=== PATIENT | male | born 1965 | race Caucasian/White ===

== ENCOUNTER → 2019-03-23 | Outpatient (CLI) | payer BC ==
[2019-03-23 20:27] LABS: BASO % 0.5 % (0.0-1.0); EOS # 0.2 10^3/uL (0.0-0.50); EOS % 2.7 % (0.0-3.0); HEMATOCRIT 43.4 % (42.0-52.0); HEMOGLOBIN 14.1 g/dl (13.5-17.5); LYMPH # 3.3 10^3/uL (1.5-4.5); LYMPH % 40.8 % (24.0-44.0); MEAN CORPUSCULAR HEMOGLOBIN 30.3 pg (27.0-33.0); MEAN CORPUSCULAR HGB CONC 32.5 g/dl (32.0-36.5); MEAN CORPUSCULAR VOLUME 93.1 fl (80.0-96.0); MONO # 0.8 10^3/uL (0.0-0.8); MONO % 9.3 % (0.0-5.0); NEUTROPHILS # 3.8 10^3/uL (1.8-7.7); NEUTROPHILS % 46.6 % (36.0-66.0); PLATELET COUNT, AUTOMATED 390 10^3/uL (150-450); RED BLOOD COUNT 4.66 10^6/uL (4.30-6.10); WHITE BLOOD COUNT 8.1 10^3/uL (4.0-10.0)
[2019-03-23 20:33] LABS: ALBUMIN 3.8 GM/DL (3.2-5.2); ALT/SGPT 28 U/L (12-78); BILIRUBIN,TOTAL 0.2 MG/DL (0.2-1.0); BLOOD UREA NITROGEN 13 MG/DL (7-18); CALCIUM LEVEL 8.6 MG/DL (8.5-10.1); CARBON DIOXIDE LEVEL 28 MEQ/L (21-32); CHLORIDE LEVEL 108 MEQ/L (98-107); CREATININE FOR GFR 0.84 MG/DL (0.70-1.30); GLOMERULAR FILTRATION RATE > 60.0 (>56); GLUCOSE, FASTING 86 MG/DL (70-100); POTASSIUM SERUM 4.3 MEQ/L (3.5-5.1); SODIUM LEVEL 141 MEQ/L (136-145)
== END ==
LOC: M WUC 10:30
DX: R31.9 Hematuria, unspecified (principal)

== ENCOUNTER → 2019-03-27 | Outpatient (REF) | payer BC ==
[2019-03-27 14:52] LABS: APPEARANCE, URINE CLEAR (CLEAR); BACTERIA, URINE AUTO NEGATIVE (NEGATIVE); BILIRUBIN, URINE AUTO NEGATIVE (NEGATIVE); BLOOD, URINE BLOOD 1+ (NEGATIVE); COLOR, URINE YELLOW (YELLOW); GLUCOSE, URINE (UA) AUTO NEGATIVE (NEGATIVE); KETONE, URINE AUTO NEGATIVE (NEGATIVE); LEUKOCYTE ESTERASE, URINE AUTO NEGATIVE (NEGATIVE); NITRITE, URINE AUTO NEGATIVE (NEGATIVE); PROTEIN, URINE AUTO NEGATIVE (NEGATIVE); RBC, URINE AUTO 5 /HPF (0-3); SPECIFIC GRAVITY URINE AUTO 1.012 (1.002-1.035); SQUAMOUS EPITHELIAL CELL UR AU 0 /HPF (0-6); UROBILINOGEN, URINE AUTO 0.2 mg/dL (0.0-2.0); WBC, URINE AUTO 0 /HPF (0-3)
== END ==
LOC: M SMT 13:35
PROVIDERS: ATTEND Nurse Practitioner Family
DX: R31.9 Hematuria, unspecified (principal)

== ENCOUNTER → 2019-04-01 | Outpatient (CLI) | payer BC ==
[~2019-04-01] MED LIST: ISOVUE-370 76% 100ML VIAL (Q9967) As Ordered ONE
--- NOTE | 2019-04-01 16:44 | REP ---
Clinical: Hematuria. Technique: Axial precontrast, contrast enhanced, and delayed images of the abdomen and pelvis using 100 ml Isovue 370 intravenous contrast material with coronal and sagittal re-formations. Findings: Left kidney demonstrates 2 mm nonobstructing calculus and 3.5 x 1.4 x 1.4 cm peripelvic cyst. Right kidney and bilateral ureters are normal. Evaluation of the bladder demonstrates moderate mass effect due to underlying prostate gland which measures approximately 3.7 cm diameter. 2.7 cm enhancing liver lesion within the lateral segment left lobe appears isointense on delayed images. No findings are nonspecific, differential diagnosis includes focal nodular hyperplasia, adenoma, and hemangioma. Spleen, pancreas, and gallbladder appear normal. The adrenal glands demonstrate mild hyperplastic changes (left greater than right) the enteric system is without obstruction or acute inflammatory process. Normal terminal ileum and appendix identified in the right lower quadrant. Sigmoid diverticulosis noted without acute diverticulitis. No ascites. No free air. No adenopathy. Abdominal aorta without aneurysm. Musculoskeletal structures demonstrate age-related changes. Lung bases are clear. Impression: 1. 2 mm nonobstructing left renal calculus and left peripelvic cyst noted along with enlarged prostate gland having mass effect on the base of the bladder. 2. 2.7 cm enhancing liver lesion becoming isointense on delayed images. Differential diagnosis includes but is not limited to atypical hemangioma, focal nodular hyperplasia and adenoma. Correlation and follow up ultrasound may be warranted. 3. Sigmoid diverticula without acute diverticulitis. Electronically Signed by Eric Aragon MD 04/01/2019 04:35 P
== END ==
LOC: M RAD 15:43
PROVIDERS: ATTEND Nurse Practitioner Family
DX: R31.9 Hematuria, unspecified (principal)

== ENCOUNTER → 2019-10-22 | Outpatient (CLI) | payer BC ==
--- NOTE | 2019-10-22 14:14 | REP ---
Clinical: Kidney stone. Technique: Two supine views of the abdomen and pelvis. Findings: Small calcifications measuring up to approximately 5 mm overlying the right renal silhouette. Calcifications in the pelvis likely represent phleboliths. Further evaluation of the urinary tract system is limited due to technique. No evidence for bowel obstruction. No organomegaly. Skeletal structures demonstrate age-related changes. Impression: Suspected nonobstructing right intrarenal calculi up to 5 mm. Electronically Signed by Eric Aragon MD 10/22/2019 02:05 P
== END ==
LOC: M WUC 13:48
PROVIDERS: ATTEND Nurse Practitioner Family
DX: N20.0 Calculus of kidney (principal)

== ENCOUNTER → 2019-11-06 | Outpatient (CLI) | payer BC ==
--- NOTE | 2019-11-06 16:02 | REPVR ---
PROCEDURE INFORMATION: Exam: CT Abdomen And Pelvis Without Contrast Exam date and time: 11/06/2019 2:42 PM Age: 54 years old Clinical indication: Other: Stone; Additional info: Kidney stone TECHNIQUE: Imaging protocol: Computed tomography of the abdomen and pelvis without contrast. Radiation optimization: All CT scans at this facility use at least one of these dose optimization techniques: automated exposure control; mA and/or kV adjustment per patient size (includes targeted exams where dose is matched to clinical indication); or iterative reconstruction. COMPARISON: CT ABD PELVIS W/O FOL BY WIT 04/01/2019 4:02 PM FINDINGS: Heart: Heart size is normal. Liver: In the left hepatic lobe, subtle hypodense lesion, 2.6 x 2.4 x 1.9 cm, is unchanged from the contrast enhancing lesion which was described in the report of the CT on 04/01/19. Gallbladder and bile ducts: Normal. No calcified stones. No ductal dilation. Pancreas: Normal. No ductal dilation. Spleen: Normal. No splenomegaly. Adrenals: Left adrenal hyperplasia is unchanged. Kidneys and ureters: There is a stable 2 mm subcortical stone with mild focal cortical scarring at the lateral aspect of the mid to lower right kidney. Two nonobstructing 2 mm calyceal stones in the lower left kidney. Stable parapelvic cyst inferior to the left renal pelvis is 4.1 x 2.6 x 2.0 cm. The kidneys and ureters are otherwise unremarkable. Stomach and bowel: Mild colonic diverticulosis without evidence of diverticulitis. The colon is otherwise unremarkable. No acute colonic distention or inflammation. Stomach and duodenum are unremarkable. Small bowel loops are normal in caliber. Appendix: The appendix is normal in caliber without surrounding inflammation. Intraperitoneal space: No free air or free fluid in the abdomen or pelvis. Vasculature: Unremarkable. No abdominal aortic aneurysm. Lymph nodes: Unremarkable. No enlarged lymph nodes. Bladder: Urinary bladder is normal without wall thickening, mass or stone. Reproductive: The prostate appears appropriate for 54 years of age. Mild prostate enlargement. Bones/joints: Severe multifactorial spinal stenosis at L3-L4 and L4-L5. 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 Soft tissues: Unremarkable. IMPRESSION: 1. Two nonobstructing 2 mm calyceal stones in the lower left kidney. One of them was present on the last CT in March 2019. 2. In the left hepatic lobe, a hypodense lesion is 2.6 x 2.4 x 1.9 cm. Its size is unchanged from the contrast-enhancing lesion which was described in the report of the CT on 04/01/19. It is nonspecific. Stability is reassuring. 3. Severe multifactorial spinal stenosis at L3-L4 and L4-L5. 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 If symptomatic, consider MRI. 4. Stable parapelvic cyst inferior to the left renal pelvis is 4.1 x 2.6 x 2.0 cm. 5. Mild colonic diverticulosis without evidence of diverticulitis. 6. Stable left adrenal hyperplasia. Electronically signed by: Frank Evans On 11/06/2019 16:02:01 PM
== END ==
LOC: M RAD 14:33
PROVIDERS: ATTEND Nurse Practitioner Family
DX: N20.0 Calculus of kidney (principal)

== ENCOUNTER → 2019-12-30 | Outpatient (REF) | payer BC ==
[2019-12-30 11:25] LABS: BASO # 0.1 10^3/uL (0.0-0.2); BASO % 0.6 % (0.0-1.0); EOS # 0.1 10^3/uL (0.0-0.5); EOS % 1.2 % (0.0-3.0); HEMATOCRIT 45.5 % (42.0-52.0); HEMOGLOBIN 15.5 g/dl (13.5-17.5); LYMPH % 39.5 % (24.0-44.0); MEAN CORPUSCULAR HEMOGLOBIN 30.8 pg (27.0-33.0); MEAN CORPUSCULAR HGB CONC 34.1 g/dl (32.0-36.5); MEAN CORPUSCULAR VOLUME 90.5 fl (80.0-96.0); MONO # 0.9 10^3/uL (0.0-0.8); NEUTROPHILS % 49.3 % (36.0-66.0); PLATELET COUNT, AUTOMATED 435 10^3/uL (150-450); RED BLOOD COUNT 5.03 10^6/uL (4.30-6.10); WHITE BLOOD COUNT 10.1 10^3/uL (4.0-10.0)
[2019-12-30 11:51] LABS: HEMOGLOBIN A1c 5.8 %
[2019-12-30 12:05] LABS: ALBUMIN 4.1 GM/DL (3.2-5.2); ALT/SGPT 30 U/L (12-78); BILIRUBIN,TOTAL 0.4 MG/DL (0.2-1.0); BLOOD UREA NITROGEN 10 MG/DL (7-18); CALCIUM LEVEL 9.1 MG/DL (8.5-10.1); CARBON DIOXIDE LEVEL 28 MEQ/L (21-32); CHLORIDE LEVEL 106 MEQ/L (98-107); CHOLESTEROL LEVEL 189 MG/DL (<200); CREATININE FOR GFR 0.82 MG/DL (0.70-1.30); FREE T4 1.18 NG/DL (0.76-1.46); GLOMERULAR FILTRATION RATE > 60.0 (>56); GLUCOSE, FASTING 87 MG/DL (70-100); HDL CHOLESTEROL 50 MG/DL (>40); LDL CHOLESTEROL 118 MG/DL (<100); NON-HDL-C 139 MG/DL; POTASSIUM SERUM 4.3 MEQ/L (3.5-5.1); SODIUM LEVEL 139 MEQ/L (136-145); TOTAL PROTEIN 7.4 GM/DL (6.4-8.2); TRIGLYCERIDES LEVEL 105 MG/DL (<150)
== END ==
LOC: M SFHCPLAZ 08:02
PROVIDERS: ATTEND Physician Assistant Medical
DX: Z12.11 Encounter for screening for malignant neoplasm of colon (principal); Z13.220 Encounter for screening for lipoid disorders; Z68.32 Body mass index [BMI] 32.0-32.9, adult; E66.9 Obesity, unspecified; Z12.5 Encounter for screening for malignant neoplasm of prostate
CPT/HCPCS: 36415; 80053; 80061; 83036; 84439; 84443; 85025; G0103

== ENCOUNTER → 2020-01-08 | Outpatient (CLI) | payer BC ==
[~2020-01-08] MED LIST changes: -ISOVUE-370 76% 100ML VIAL (Q9967) As Ordered ONE; +PROHANCE 279.3MG/ML 15ML VIAL As Ordered ONE; +PROHANCE 279.3MG/ML 5ML VIAL As Ordered ONE
--- NOTE | 2020-01-09 10:27 | REP ---
MRI ABDOMEN WITH AND WITHOUT CONTRAST: COMPARISON: CT 11/06/2019 and 04/01/2019. Multiple sequences are obtained in the axial and coronal plains prior to and following the intravenous administration of 20 mL ProHance. In the peripheral left lobe of the liver, lateral segment, there is a hyperintense nodule on T2-weighted images which is hypointense on T1. It has somewhat lobulated borders. It measures about 2.5 x 2.7 cm. On initial post gadolinium arterial phase images, there is evidence of peripheral nodular enhancement. There is rapid filling in of the center of the lesion on the more delayed images, with persistent enhancement throughout the delayed phases of imaging. The findings are most consistent with a benign hemangioma. No other liver lesion is seen. The spleen is normal in size with no intrinsic abnormality. There is nodular thickening of the left adrenal gland diffusely with a diffuse drop in signal on [id number] imaging compared to in-phase imaging. Findings are consistent with benign adenomatous change of the left adrenal gland. Right adrenal gland demonstrates no mass. There is a cyst in the left renal pelvis with no internal enhancement measuring 4.3 cm in maximum diameter. In the tail of the pancreas, there is an enhancing nodule. This measures approximately 9 x 9 x 10 mm. This demonstrates somewhat ring-like enhancement. There is mild washout on the more delayed images. In retrospect, this is visualized on the CT of 04/01/2019 and has not significantly changed in size. No adenopathy is seen in the abdomen. No free fluid is seen. IMPRESSION: In the lateral segment of the left lobe of the liver, there is a lobulated nodule demonstrating enhancement characteristics consistent with a hemangioma. In the posterior tail of the pancreas a small nodule is seen only on postcontrast images demonstrating ring-type enhancement and measuring 9 x 9 x 10 mm. This is unchanged since the prior CT of 04/01/2019. Differential diagnosis of this small solid nodule includes benign and malignant etiologies. Recommend specialist consultation for a possible biopsy or resection. Benign adenomatous change left adrenal gland. Benign left renal cyst. Electronically Signed by Redd Reeves MD 01/09/2020 11:27 A
== END ==
LOC: M RAD 15:12
PROVIDERS: ATTEND Physician Assistant Medical
DX: K76.9 Liver disease, unspecified (principal); N28.1 Cyst of kidney, acquired; K86.9 Disease of pancreas, unspecified
CPT/HCPCS: 74183; A9576

== ENCOUNTER → 2020-01-13 | Outpatient (REF) | payer BC | LOC: M SFHCPLAZ 09:31 | PROVIDERS: ATTEND Physician Assistant Medical | DX: K86.9 Disease of pancreas, unspecified (principal) ==

== ENCOUNTER → 2020-01-27 | Outpatient (CLI) | payer BC ==
--- NOTE | 2020-01-28 02:22 | REPPI ---
Clinical: Adenopathy . Comparison: None . Technique: PA and lateral. Findings: The mediastinum and cardiac silhouette are normal. The lung salazar are clear and without acute consolidation, effusion, or pneumothorax. The skeletal structures are intact and normal. Impression: 1. No acute cardiopulmonary process. Electronically Signed by Eric Aragon MD 01/28/2020 02:14 A
== END ==
LOC: M PLAIMG 08:18
PROVIDERS: ATTEND Physician Assistant Medical
DX: R59.1 Generalized enlarged lymph nodes (principal)

== ENCOUNTER → 2020-02-24 | Outpatient (CLI) | payer BC ==
--- NOTE | 2020-02-24 17:25 | REP ---
THYROID ULTRASOUND: REASON: Assess for mass. The right lobe of the thyroid gland measures 5.3 x 1.9 x 1.7 cm and the left lobe measures 3.6 x 1.5 x 1 cm. The isthmus measures 4.1 mm. There are two lesions in the right lobe left inferior pole, one is solid measuring 5 mm and the other is cystic in appearance measuring 4 mm. No abnormalities are seen on the left. IMPRESSION: As above. ULTRASONOGRAPHY OF THE NECK SOFT TISSUES. (Provided in the same folder for interpretation). REASON: Assess for a mass. Ultrasonographic evaluation of the neck soft tissues shows bilateral sold nodules which have a reniform shape, peripheral low echoes, and central increased echoes consistent with lymph nodes. These are not pathologically enlarged. IMPRESSION: No ultrasonographic evidence of lymphadenopathy, however, contrast enhanced CT of the neck is a gold standard for imaging neck masses and is recommended if a neck mass is of clinical concern or of significant adenopathy is of clinical concern. Electronically Signed by James Raza DO 02/24/2020 05:29 P
== END ==
LOC: M LRY 08:43
PROVIDERS: ATTEND Physician Assistant Medical
DX: R59.1 Generalized enlarged lymph nodes (principal); E04.1 Nontoxic single thyroid nodule

== ENCOUNTER → 2020-03-23 | Outpatient (REF) | payer BC ==
[2020-03-23 13:29] LABS: ALT/SGPT 33 U/L (12-78); BILIRUBIN,TOTAL 0.4 MG/DL (0.2-1.0); BLOOD UREA NITROGEN 11 MG/DL (7-18); CARBON DIOXIDE LEVEL 32 MEQ/L (21-32); CHLORIDE LEVEL 109 MEQ/L (98-107); CHOLESTEROL LEVEL 146 MG/DL (<200); CHOLESTEROL RISK RATIO 3.244 (<5); CPK CREATINE PHOSPHOKINASE 147 U/L (39-308); CREATININE FOR GFR 0.75 MG/DL (0.70-1.30); GLOMERULAR FILTRATION RATE > 60.0 (>56); GLUCOSE, FASTING 82 MG/DL (70-100); HDL CHOLESTEROL 45 MG/DL (>40); LDL CHOLESTEROL 89 MG/DL (<100); NON-HDL-C 101 MG/DL; POTASSIUM SERUM 4.4 MEQ/L (3.5-5.1); SODIUM LEVEL 140 MEQ/L (136-145); TOTAL PROTEIN 7.1 GM/DL (6.4-8.2); TRIGLYCERIDES LEVEL 59 MG/DL (<150)
[2020-03-23 13:59] LABS: CA19-9 TUMOR MARKER,CARBOHYDRA 5.2 U/ML (<35.0)
== END ==
LOC: M PLALAB 08:05
PROVIDERS: ATTEND Physician Assistant Medical
DX: K86.9 Disease of pancreas, unspecified (principal); E78.5 Hyperlipidemia, unspecified

== ENCOUNTER → 2020-07-08 | Outpatient (CLI) | payer BC ==
[~2020-07-08] MED LIST changes: +GASTROGRAFIN SOLUTION 30ML (Q9963) As Ordered ONE; +ISOVUE-370 76% 100ML VIAL As Ordered ONE; -PROHANCE 279.3MG/ML 15ML VIAL As Ordered ONE; -PROHANCE 279.3MG/ML 5ML VIAL As Ordered ONE
--- NOTE | 2020-07-08 09:52 | REP ---
INDICATION: PANCREATIC LESION FILE RM. COMPARISON: MRI 01/08/2020, CT 11/06/2019, 04/01/2019. TECHNIQUE: Oral Gastrografin mixture per our bowel contrast protocol and bolus of 100 mL Isovue 370 scanning through the abdomen with the 2 arterial phases and abdomen pelvis delayed phase. Coronal and sagittal reconstructions provided FINDINGS: Lung bases are clear. The heart is not enlarged no pericardial thickening or effusion I see no hiatal hernia stomach the retained oral contrast and contrast throughout upper abdominal small bowel loops. Liver is not enlarged. There is a rim enhancing lesion in the lateral segment left hepatic lobe as on previous CTs which fills in from the periphery and is consistent with a benign hemangioma. No other or new liver lesions are seen. No ascites. Gallbladder, adrenal glands and spleen were unremarkable. Tail of the pancreas shows a 9.7 mm enhancing nodule also visible on the MRI on 01/08/2020 at 9.6 mm and 9.8 mm size in the 2019 exam. There are no other or new pancreatic lesions. No calcifications, ductal dilatation, peripancreatic adenopathy or fluid collections. Diffuse thickening of the adrenal glands left greater than right consistent with adrenal hyperplasia. Even with contrast administration attenuation numbers are negative indicating typical adrenal fat content. Stool and gas scattered in the colon without colitis or diverticulitis small bowel loops unremarkable. No hiatal hernia. Of the right kidney is unremarkable. Left kidney shows a nonobstructing lower pole calculus unchanged. There is parapelvic cyst lower pole left kidney has a maximum AP diameter of 3.5 cm today, 2.4 cm back in November. The aorta shows no aneurysm or dissection. There is no periaortic, retroperitoneal or mesenteric pathologic sized lymphadenopathy. No perforation or free air in the abdomen or pelvis. The bone windows show diffuse degenerative disc and facet arthritic changes in the lower lumbar spine. The disc space at L5-S1 significantly narrowed but unchanged. No spondylolysis. Visualized lower ribs intact. CT pelvis: The sacrum, SI joints, pelvis and hips show degenerative change without destructive lesion or fracture. Distal left colon and sigmoid show some muscular hypertrophy and a few scattered diverticula without diverticulitis or colitis. There is no ureteral dilatation or stone. Left ureter is draped over the parapelvic cyst. Small bowel loops in the pelvis were unremarkable bladder well filled without stone or mass. No wall thickening. See no ventral or inguinal hernia nor pathologic sized inguinal adenopathy. IMPRESSION: Stable 9.7 mm in enhancing at tail of pancreas lesion seen on previous MRI and a CT earlier this year as well as in retrospect a noncontrast CT in 2019. No adjacent peripancreatic adenopathy fluid collection or other pancreatic abnormality. Stable left lobe of liver hemangioma. No other hepatic findings. Diverticulosis left colon and sigmoid without diverticulitis or colitis. Parapelvic cyst lower pole left kidney with a nonobstructing lower pole calculus as well. No new or acute finding. <Electronically signed by Andrei Sharp > 07/08/20 [id number]
== END ==
LOC: M RAD 08:06
PROVIDERS: ATTEND Physician Assistant Medical
DX: K86.9 Disease of pancreas, unspecified (principal)

== ENCOUNTER → 2021-01-02 | Outpatient (CLI) | payer BC ==
[~2021-01-02] MED LIST changes: +ATOR1TAB19 PO; -GASTROGRAFIN SOLUTION 30ML (Q9963) As Ordered ONE; -ISOVUE-370 76% 100ML VIAL As Ordered ONE
== END ==
LOC: M LABSMTC 10:06
PROVIDERS: ATTEND Anesthesiology
DX: Z01.818 Encounter for other preprocedural examination (principal); Z11.52 Encounter for screening for COVID-19

== ENCOUNTER 2021-01-07 09:02 | Day surgery (SDC) | payer BC ==
[~2021-01-07] VITALS: Ht 172.7 cm; Wt 100.2 kg
[~2021-01-07 09:02] MED LIST changes: +ETOMIDATE INJ 20MG/10ML VIAL As Ordered ONE; +NS 1,000 ML IV ONE
[2021-01-07] MEDS ORDERED: LIDOCAINE 2% 100MG/5ML SDV (FOR ANES.) As Ordered ONE (09:39)
[2021-01-07] MEDS ORDERED: propofoL 200 MG/20 ML VIAL As Ordered ONE ×2 (09:39→11:00)
--- NOTE | 2021-01-07 11:35 | ROOR ---
Patient Name: Juan Aguilera Procedure Date: 01/07/2021 10:37 AM Date of : 1965 Age: 55 Room: [facility] Gender: Male Note Status: Finalized Procedure: Colonoscopy Indications: Screening for colorectal malignant neoplasm, Screening for colon cancer: Family history of colon polyps in distant relative(s) Providers: Renato Rhodes MD Referring MD: Olive RAMIRES Requesting Provider: Medicines: Monitored Anesthesia Care Complications: No immediate complications. Procedure: Pre-Anesthesia Assessment: - Prior to the procedure, a History and Physical was performed, and patient medications and allergies were reviewed. The patient is competent. The risks and benefits of the procedure and the sedation options and risks were discussed with the patient. All questions were answered and informed consent was obtained. Patient identification and proposed procedure were verified by the physician, the nurse and the anesthesiologist in the procedure room. Mental Status Examination: alert and oriented. Airway Examination: normal oropharyngeal airway and neck mobility. Respiratory Examination: clear to auscultation. CV Examination: normal. Prophylactic Antibiotics: The patient does not require prophylactic antibiotics. Prior Anticoagulants: The patient has taken no previous anticoagulant or antiplatelet agents. ASA Grade Assessment: II - A patient with mild systemic disease. After reviewing the risks and benefits, the patient was deemed in satisfactory condition to undergo the procedure. The anesthesia plan was to use monitored anesthesia care (MAC). Immediately prior to administration of medications, the patient was re-assessed for adequacy to receive sedatives. The heart rate, respiratory rate, oxygen saturations, blood pressure, adequacy of pulmonary ventilation, and response to care were monitored throughout the procedure. The physical status of the patient was re-assessed after the procedure. The Colonoscope was introduced through the anus and advanced to the terminal ileum, with identification of the appendiceal orifice and IC valve. The colonoscopy was performed without difficulty. The patient tolerated the procedure well. The quality of the bowel preparation was good. The terminal ileum, ileocecal valve, appendiceal orifice, and rectum were photographed. Scope insertion time was 3 minutes. Scope withdrawal time was 9 minutes. The total duration of the procedure was 12 minutes. Findings: The perianal and digital rectal examinations were normal. The terminal ileum appeared normal. Five sessile polyps were found in the recto-sigmoid colon, transverse colon and ascending colon. The polyps were 6 to 15 mm in size. These polyps were removed with a hot snare. Resection and retrieval were complete. Verification of patient identification for the specimen was done by the physician and nurse using the patient's name, date and medical record number. Estimated blood loss was minimal. Non-bleeding external and internal hemorrhoids were found during retroflexion. The hemorrhoids were medium-sized. Impression: - The examined portion of the ileum was normal. - Five 6 to 15 mm polyps at the recto-sigmoid colon, in the transverse colon and in the ascending colon, removed with a hot snare. Resected and retrieved. - Non-bleeding external and internal hemorrhoids. Recommendation: - Patient has a contact number available for emergencies. The signs and symptoms of potential delayed complications were discussed with the patient. Return to normal activities tomorrow. Written discharge instructions were provided to the patient. - High fiber diet. - Continue present medications. - Await pathology results. - Repeat colonoscopy in 3 years for surveillance based on pathology results. - Telephone GI clinic for pathology results in 2 weeks. - Return to primary care physician. Procedure Code(s): --- Professional --- 86274, Colonoscopy, flexible; with removal of tumor(s), polyp(s), or other lesion(s) by snare technique Diagnosis Code(s): --- Professional --- Z12.11, Encounter for screening for malignant neoplasm of colon Z83.71, Family history of colonic polyps K64.8, Other hemorrhoids K63.5, Polyp of colon CPT copyright 2019 [employer]. All rights reserved. The codes documented in this report are preliminary and upon extension work instructor review may be revised to meet current compliance requirements. Renato Rhodes MD Renato Rhodes MD 01/07/2021 11:35:07 AM Electronically signed by Renato Rhodes MD Number of Addenda: 0 Note Initiated On: 01/07/2021 10:37 AM Estimated Blood Loss: Estimated blood loss was minimal.
[2021-01-07 11:50] VITALS: BP 170/92
== END 2021-01-07 12:05 | disposition home or self-care (01) ==
LOC: M OPP 09:02
PROVIDERS: ATTEND Internal Medicine Gastroenterology
DX: Z12.11 Encounter for screening for malignant neoplasm of colon (principal); Z83.71 Family history of colonic polyps; K63.5 Polyp of colon; K64.8 Other hemorrhoids; Z79.899 Other long term (current) drug therapy

== ENCOUNTER → 2021-02-18 | Outpatient (CLI) | payer BC ==
[~2021-02-18] MED LIST changes: -ETOMIDATE INJ 20MG/10ML VIAL As Ordered ONE; -NS 1,000 ML IV ONE
--- NOTE | 2021-02-18 17:23 | REPVR ---
PROCEDURE INFORMATION: Exam: CT Maxillofacial Without Contrast Exam date and time: 02/18/2021 4:43 PM Age: 55 years old Clinical indication: Other: Sialoadenitis, right side facial swelling TECHNIQUE: Imaging protocol: Computed tomography images of the face without contrast. Radiation optimization: All CT scans at this facility use at least one of these dose optimization techniques: automated exposure control; mA and/or kV adjustment per patient size (includes targeted exams where dose is matched to clinical indication); or iterative reconstruction. COMPARISON: US SOFT TISSUE H/N THYROID 02/24/2020 11:49 AM FINDINGS: Limitations: Evaluation is limited without IV contrast. Orbital cavity: Orbits are normal. Globes are unremarkable. Bones/joints: No acute fracture. Paranasal sinuses: Normal. No air-fluid levels. Soft tissues: Mild subcutaneous edema is present in the inferior right face. Mild inflammation is also noted along the right mandible. There appears to be mild thickening of the right masseter muscle. Evaluation for an underlying abscess is limited without IV contrast. Dental: There is a small lucency around the crown of the unerupted right mandibular 3rd molar tooth, possibly representing infection. IMPRESSION: Mild inflammation or cellulitis around the right mandible and lower right face. This could be related to infection from the right 3rd mandibular molar tooth. Evaluation for an underlying abscess is limited without IV contrast. Electronically signed by: Tyler White On 02/18/2021 17:22:59 PM
== END ==
LOC: M RAD 16:19
PROVIDERS: ATTEND Otolaryngology
DX: K11.20 Sialoadenitis, unspecified (principal)

== ENCOUNTER → 2021-03-16 | Outpatient (REF) | payer BC ==
[2021-03-16 15:35] LABS: APPEARANCE, URINE HAZY (CLEAR); BACTERIA, URINE AUTO NEGATIVE (NEGATIVE); BILIRUBIN, URINE AUTO NEGATIVE (NEGATIVE); BLOOD, URINE BLOOD 1+ (NEGATIVE); COLOR, URINE YELLOW (YELLOW); GLUCOSE, URINE (UA) AUTO NEGATIVE (NEGATIVE); KETONE, URINE AUTO TRACE mg/dL (NEGATIVE); LEUKOCYTE ESTERASE, URINE AUTO NEGATIVE (NEGATIVE); MUCUS, URINE SMALL (NEGATIVE); NITRITE, URINE AUTO NEGATIVE (NEGATIVE); PROTEIN, URINE AUTO NEGATIVE (NEGATIVE); RBC, URINE AUTO 0 /HPF (0-3); SPECIFIC GRAVITY URINE AUTO 1.028 (1.002-1.035); SQUAMOUS EPITHELIAL CELL UR AU 0 /HPF (0-6); WBC, URINE AUTO 1 /HPF (0-3)
== END ==
LOC: M SFHCPLAZ 15:14
PROVIDERS: ATTEND Physician Assistant Medical
DX: R31.9 Hematuria, unspecified (principal)

== ENCOUNTER → 2021-03-18 | Outpatient (CLI) | payer BC ==
[2021-03-18 11:32] LABS: ALBUMIN 3.7 GM/DL (3.2-5.2); ALT/SGPT 30 U/L (12-78); BILIRUBIN,TOTAL 0.4 MG/DL (0.2-1.0); BLOOD UREA NITROGEN 11 MG/DL (7-18); CALCIUM LEVEL 8.6 MG/DL (8.5-10.1); CARBON DIOXIDE LEVEL 27 MEQ/L (21-32); CHLORIDE LEVEL 110 MEQ/L (98-107); CHOLESTEROL LEVEL 124 MG/DL (<200); CHOLESTEROL RISK RATIO 2.883 (<5); CREATININE FOR GFR 0.83 MG/DL (0.70-1.30); GLOMERULAR FILTRATION RATE > 60.0 (>56); GLUCOSE, FASTING 83 MG/DL (70-100); HDL CHOLESTEROL 43 MG/DL (>40); LDL CHOLESTEROL 69 MG/DL (<100); NON-HDL-C 81 MG/DL; POTASSIUM SERUM 4.3 MEQ/L (3.5-5.1); SODIUM LEVEL 142 MEQ/L (136-145); TOTAL PROTEIN 6.6 GM/DL (6.4-8.2); TRIGLYCERIDES LEVEL 61 MG/DL (<150)
[2021-03-18 11:34] LABS: HEMOGLOBIN A1c 5.4 %
== END ==
LOC: M PLALAB 07:02
PROVIDERS: ATTEND Physician Assistant Medical
DX: R73.01 Impaired fasting glucose (principal); E78.5 Hyperlipidemia, unspecified

== ENCOUNTER → 2021-04-21 | Outpatient (REF) | payer BC | LOC: M SFHCPLAZ 13:14 | PROVIDERS: ATTEND Physician Assistant Medical | DX: L91.8 Other hypertrophic disorders of the skin (principal) ==

== ENCOUNTER → 2021-07-05 | Outpatient (REF) | payer BC | LOC: M LAB REF 11:23 | PROVIDERS: ATTEND Ophthalmology | DX: D23.111 Other benign neoplasm of skin of right upper eyelid, including canthus (principal); D23.121 Other benign neoplasm of skin of left upper eyelid, including canthus ==

== ENCOUNTER → 2021-07-21 | Outpatient (CLI) | payer BC ==
[2021-07-21 10:09] LABS: BASO # 0.1 10^3/uL (0.0-0.2); BASO % 0.6 % (0.0-1.0); EOS # 0.2 10^3/uL (0.0-0.5); EOS % 2.1 % (0.0-3.0); HEMATOCRIT 42.8 % (42.0-52.0); HEMOGLOBIN 14.3 g/dl (13.5-17.5); LYMPH # 3.5 10^3/uL (1.5-5.0); LYMPH % 41.5 % (24.0-44.0); MEAN CORPUSCULAR HEMOGLOBIN 30.2 pg (27.0-33.0); MEAN CORPUSCULAR HGB CONC 33.4 g/dl (32.0-36.5); MEAN CORPUSCULAR VOLUME 90.3 fl (80.0-96.0); MONO # 0.7 10^3/uL (0.0-0.8); MONO % 8.8 % (2.0-8.0); NEUTROPHILS # 3.9 10^3/uL (1.5-8.5); NEUTROPHILS % 46.8 % (36.0-66.0); PLATELET COUNT, AUTOMATED 416 10^3/uL (150-450); RED BLOOD COUNT 4.74 10^6/uL (4.30-6.10); WHITE BLOOD COUNT 8.4 10^3/uL (4.0-10.0)
[2021-07-21 10:29] LABS: HEMOGLOBIN A1c 5.4 %
== END ==
LOC: M PLALAB 08:11
PROVIDERS: ATTEND Physician Assistant Medical
DX: R03.0 Elevated blood-pressure reading, without diagnosis of hypertension (principal)

== ENCOUNTER → 2021-08-15 | Outpatient (CLI) | payer BC ==
[2021-08-15 18:28] LABS: BLOOD UREA NITROGEN 9 MG/DL (7-18); CALCIUM LEVEL 9.4 MG/DL (8.5-10.1); CARBON DIOXIDE LEVEL 29 MEQ/L (21-32); CHLORIDE LEVEL 107 MEQ/L (98-107); GLOMERULAR FILTRATION RATE > 60.0 (>56); GLUCOSE, FASTING 85 MG/DL (70-100); POTASSIUM SERUM 4.3 MEQ/L (3.5-5.1); SODIUM LEVEL 141 MEQ/L (136-145)
== END ==
LOC: M PLALAB 11:20
PROVIDERS: ATTEND Surgery Surgical Oncology
DX: K86.2 Cyst of pancreas (principal)

== ENCOUNTER → 2021-08-17 | Outpatient (CLI) | payer BC ==
[~2021-08-17] MED LIST changes: +PROHANCE 279.3MG/ML 15ML VIAL As Ordered ONE; +PROHANCE 279.3MG/ML 5ML VIAL As Ordered ONE
--- NOTE | 2021-08-18 11:33 | REP ---
INDICATION: PANCREATIC CYST. COMPARISON: 01/08/2020 performed in the same fashion TECHNIQUE: MIP reformatted 3-D images of the common bile duct and pancreatic duct were obtained along with source images in the axial and coronal scan planes. Pre and post contrast 3T MRI of the abdomen was also performed utilizing various sequences. Gadolinium utilized: 19 cc ProHance FINDINGS: The enhancing lesion seen in the lateral segment of the left lobe of the liver on the prior exam is completely unchanged. No new hepatic lesions have developed. There is no evidence of intrahepatic ductal dilatation. The gallbladder is again seen to be within normal limits. The spleen, adrenal glands, and kidneys are unchanged. The nodular left adrenal gland is stable. The left renal cyst is stable. The tiny enhancing nodule seen in the pancreatic tail region and again only on the postcontrast enhanced images is unchanged. There is no peripancreatic or para-aortic adenopathy. There is no free fluid. The MRCP images are unchanged from the prior exam. There is no abnormality seen involving the common hepatic duct, common bile duct, or pancreatic duct. IMPRESSION: There has been no change compared to the prior exam with findings as described above. <Electronically signed by James Raza > 08/18/21 [id number]
== END ==
LOC: M RAD 15:18
PROVIDERS: ATTEND Nurse Practitioner Family
DX: K86.2 Cyst of pancreas (principal)

== ENCOUNTER → 2021-12-20 | Outpatient (CLI) | payer BC ==
[~2021-12-20] MED LIST changes: -PROHANCE 279.3MG/ML 15ML VIAL As Ordered ONE; -PROHANCE 279.3MG/ML 5ML VIAL As Ordered ONE
[2021-12-20 10:54] LABS: BASO # 0.1 10^3/uL (0.0-0.2); BASO % 0.4 % (0.0-1.0); EOS # 0.2 10^3/uL (0.0-0.5); EOS % 1.7 % (0.0-3.0); HEMATOCRIT 43.5 % (42.0-52.0); HEMOGLOBIN 14.6 g/dl (13.5-17.5); LYMPH # 4.5 10^3/uL (1.5-5.0); LYMPH % 37.9 % (24.0-44.0); MEAN CORPUSCULAR HEMOGLOBIN 30.4 pg (27.0-33.0); MEAN CORPUSCULAR HGB CONC 33.6 g/dl (32.0-36.5); MEAN CORPUSCULAR VOLUME 90.4 fl (80.0-96.0); MONO # 0.9 10^3/uL (0.0-0.8); MONO % 7.5 % (2.0-8.0); NEUTROPHILS # 6.2 10^3/uL (1.5-8.5); NEUTROPHILS % 52.2 % (36.0-66.0); PLATELET COUNT, AUTOMATED 453 10^3/uL (150-450); RED BLOOD COUNT 4.81 10^6/uL (4.30-6.10); WHITE BLOOD COUNT 11.9 10^3/uL (4.0-10.0)
[2021-12-20 11:11] LABS: ALT/SGPT 55 U/L (12-78); BILIRUBIN,TOTAL 0.3 MG/DL (0.2-1.0); BLOOD UREA NITROGEN 13 MG/DL (7-18); CALCIUM LEVEL 9.1 MG/DL (8.5-10.1); CARBON DIOXIDE LEVEL 31 MEQ/L (21-32); CHLORIDE LEVEL 108 MEQ/L (98-107); CHOLESTEROL LEVEL 151 MG/DL (<200); CHOLESTEROL RISK RATIO 2.696 (<5); CREATININE FOR GFR 0.88 MG/DL (0.70-1.30); GLOMERULAR FILTRATION RATE > 60.0 (>56); GLUCOSE, FASTING 78 MG/DL (70-100); HDL CHOLESTEROL 56 MG/DL (>40); LDL CHOLESTEROL 70 MG/DL (<100); NON-HDL-C 95 MG/DL; POTASSIUM SERUM 4.7 MEQ/L (3.5-5.1); SODIUM LEVEL 140 MEQ/L (136-145); TOTAL PROTEIN 7.1 GM/DL (6.4-8.2); TRIGLYCERIDES LEVEL 123 MG/DL (<150)
[2021-12-20 11:25] LABS: HEMOGLOBIN A1c 5.3 %
[2021-12-20 11:36] LABS: CA19-9 TUMOR MARKER,CARBOHYDRA 7.8 U/ML (<35.0)
== END ==
LOC: M PLALAB 08:04
PROVIDERS: ATTEND Physician Assistant Medical
DX: R73.01 Impaired fasting glucose (principal)

== ENCOUNTER → 2022-05-23 | Outpatient (CLI) | payer BC ==
[2022-05-23 11:07] LABS: BASO # 0.1 10^3/uL (0.0-0.2); BASO % 0.6 % (0.0-1.0); EOS # 0.1 10^3/uL (0.0-0.5); EOS % 1.1 % (0.0-3.0); HEMATOCRIT 41.7 % (42.0-52.0); LYMPH # 3.4 10^3/uL (1.5-5.0); LYMPH % 39.8 % (24.0-44.0); MEAN CORPUSCULAR HEMOGLOBIN 30.5 pg (27.0-33.0); MEAN CORPUSCULAR HGB CONC 33.6 g/dl (32.0-36.5); MEAN CORPUSCULAR VOLUME 90.8 fl (80.0-96.0); MONO # 0.8 10^3/uL (0.0-0.8); MONO % 9.5 % (2.0-8.0); NEUTROPHILS # 4.2 10^3/uL (1.5-8.5); NEUTROPHILS % 48.8 % (36.0-66.0); PLATELET COUNT, AUTOMATED 399 10^3/uL (150-450); RED BLOOD COUNT 4.59 10^6/uL (4.30-6.10); WHITE BLOOD COUNT 8.6 10^3/uL (4.0-10.0)
[2022-05-23 11:29] LABS: HEMOGLOBIN A1c 5.5 %
== END ==
LOC: M PLALAB 08:08
PROVIDERS: ATTEND Physician Assistant Medical
DX: R59.1 Generalized enlarged lymph nodes (principal)

== ENCOUNTER → 2022-10-02 | Outpatient (CLI) | payer BC ==
[~2022-10-02] MED LIST changes: +PROHANCE 279.3MG/ML 15ML VIAL As Ordered ONE; +PROHANCE 279.3MG/ML 5ML VIAL As Ordered ONE
== END ==
LOC: M RAD 08:53
DX: K86.2 Cyst of pancreas (principal)

== ENCOUNTER → 2022-10-16 | Outpatient (CLI) | payer BC ==
[~2022-10-16] MED LIST changes: -PROHANCE 279.3MG/ML 15ML VIAL As Ordered ONE; -PROHANCE 279.3MG/ML 5ML VIAL As Ordered ONE
[2022-10-16 10:40] LABS: BASO # 0.1 10^3/uL (0.0-0.2); BASO % 0.7 % (0.0-1.0); EOS # 0.2 10^3/uL (0.0-0.5); EOS % 1.7 % (0.0-3.0); LYMPH % 45.2 % (24.0-44.0); MEAN CORPUSCULAR HEMOGLOBIN 30.2 pg (27.0-33.0); MEAN CORPUSCULAR HGB CONC 32.6 g/dl (32.0-36.5); MEAN CORPUSCULAR VOLUME 92.9 fl (80.0-96.0); MONO # 0.8 10^3/uL (0.0-0.8); MONO % 8.9 % (2.0-8.0); NEUTROPHILS # 3.8 10^3/uL (1.5-8.5); NEUTROPHILS % 43.3 % (36.0-66.0); PLATELET COUNT, AUTOMATED 352 10^3/uL (150-450); RED BLOOD COUNT 4.63 10^6/uL (4.30-6.10); WHITE BLOOD COUNT 8.8 10^3/uL (4.0-10.0)
[2022-10-16 11:18] LABS: ALKALINE PHOSPHATASE 59 U/L (46-116); ALT/SGPT 30 U/L (7.0-40); AST/SGOT 27 U/L (<34); BILIRUBIN,TOTAL 0.3 MG/DL (0.3-1.2); BLOOD UREA NITROGEN 10 MG/DL (9-23); CALCIUM LEVEL 8.6 MG/DL (8.5-10.1); CARBON DIOXIDE LEVEL 29 MMOL/L (20-31); CHLORIDE LEVEL 107 MMOL/L (98-107); CHOLESTEROL LEVEL 125 MG/DL (<200); CHOLESTEROL RISK RATIO 2.65 (<5); CREATININE FOR GFR 0.77 MG/DL (0.70-1.30); GLOMERULAR FILTRATION RATE > 60.0 (>56); GLUCOSE, FASTING 85 MG/DL (60-100); NON-HDL-C 78 MG/DL; POTASSIUM SERUM 4.1 MMOL/L (3.5-5.1); SODIUM LEVEL 140 MMOL/L (136-145); TOTAL PROTEIN 6.6 G/DL (5.7-8.2); TRIGLYCERIDES LEVEL 80 MG/DL (<150)
[2022-10-16 11:31] LABS: CA19-9 TUMOR MARKER,CARBOHYDRA 7.9 U/ML (<35.0)
== END ==
LOC: M PLALAB 08:18
PROVIDERS: ATTEND Physician Assistant Medical
DX: Z12.5 Encounter for screening for malignant neoplasm of prostate (principal); E78.5 Hyperlipidemia, unspecified; R03.0 Elevated blood-pressure reading, without diagnosis of hypertension; K86.9 Disease of pancreas, unspecified
CPT/HCPCS: 36415; 80053; 80061; 85025; 86301; G0103

== ENCOUNTER → 2023-02-20 | Outpatient (CLI) | payer BC | LOC: M RAD 13:26 | PROVIDERS: ATTEND Physician Assistant Medical | DX: E04.1 Nontoxic single thyroid nodule (principal) ==

== ENCOUNTER → 2023-09-04 | Outpatient (CLI) | payer BC ==
[2023-09-04 11:26] LABS: BASO # 0.1 10^3/uL (0.0-0.2); BASO % 0.6 % (0.0-1.0); EOS # 0.2 10^3/uL (0.0-0.5); EOS % 1.6 % (0.0-3.0); HEMATOCRIT 46.2 % (42.0-52.0); HEMOGLOBIN 15.5 g/dl (13.5-17.5); LYMPH # 3.2 10^3/uL (1.5-5.0); LYMPH % 32.1 % (24.0-44.0); MEAN CORPUSCULAR HEMOGLOBIN 30.5 pg (27.0-33.0); MEAN CORPUSCULAR HGB CONC 33.5 g/dl (32.0-36.5); MEAN CORPUSCULAR VOLUME 90.9 fl (80.0-96.0); MONO # 0.8 10^3/uL (0.0-0.8); MONO % 7.8 % (2.0-8.0); NEUTROPHILS # 5.7 10^3/uL (1.5-8.5); NEUTROPHILS % 57.7 % (36.0-66.0); PLATELET COUNT, AUTOMATED 422 10^3/uL (150-450); RED BLOOD COUNT 5.08 10^6/uL (4.30-6.10); WHITE BLOOD COUNT 9.9 10^3/uL (4.0-10.0)
[2023-09-04 11:53] LABS: LIPASE 27 U/L (12-53); PSA SCREENING 0.58 NG/ML (< 4.00)
[2023-09-04 11:55] LABS: CPK CREATINE PHOSPHOKINASE 103 U/L (46-171)
[2023-09-04 11:56] LABS: ALBUMIN 3.8 G/DL (3.2-5.2); ALKALINE PHOSPHATASE 56 U/L (46-116); ALT/SGPT 33 U/L (7.0-40); AST/SGOT 24 U/L (<34); BILIRUBIN,TOTAL 0.5 MG/DL (0.3-1.2); BLOOD UREA NITROGEN 11 MG/DL (9-23); CALCIUM LEVEL 8.8 MG/DL (8.3-10.6); CARBON DIOXIDE LEVEL 26 MMOL/L (20-31); CHLORIDE LEVEL 107 MMOL/L (98-107); CHOLESTEROL LEVEL 149 MG/DL (<200); CREATININE FOR GFR 0.77 MG/DL (0.70-1.30); GLOMERULAR FILTRATION RATE > 60.0 (>49); GLUCOSE, FASTING 82 MG/DL (74-106); HDL CHOLESTEROL 53.2 MG/DL (>40); LDL CHOLESTEROL 69.8 MG/DL (<100); NON-HDL-C 95.8 MG/DL; POTASSIUM SERUM 4.5 MMOL/L (3.5-5.1); SODIUM LEVEL 139 MMOL/L (136-145); TOTAL PROTEIN 6.8 G/DL (5.7-8.2); TRIGLYCERIDES LEVEL 130 MG/DL (<150)
[2023-09-04 11:57] LABS: FREE T4 1.07 NG/DL (0.89-1.76)
[2023-09-04 11:58] LABS: THYROID STIMULATING HORMONE 1.512 uIU/ML (0.55-4.78)
[2023-09-04 12:04] LABS: HEMOGLOBIN A1c 5.4 % (4.0-6.0)
[2023-09-04 12:15] LABS: CA19-9 TUMOR MARKER,CARBOHYDRA 5.2 U/ML (<35.0)
== END ==
LOC: M PLALAB 08:19
PROVIDERS: ATTEND Physician Assistant Medical
DX: R03.0 Elevated blood-pressure reading, without diagnosis of hypertension (principal)

== ENCOUNTER → 2023-09-24 | Outpatient (CLI) | payer BC | LOC: M WHC 07:09 | PROVIDERS: ATTEND Physician Assistant Medical | DX: E04.1 Nontoxic single thyroid nodule (principal) ==

== ENCOUNTER → 2024-03-14 | Outpatient (CLI) | payer BC ==
[2024-03-14 15:05] LABS: BASO # 0.1 10^3/uL (0.0-0.2); BASO % 0.5 % (0.0-1.0); EOS # 0.1 10^3/uL (0.0-0.5); EOS % 0.9 % (0.0-3.0); HEMATOCRIT 40.6 % (42.0-52.0); HEMOGLOBIN 13.8 g/dl (13.5-17.5); LYMPH # 3.5 10^3/uL (1.5-5.0); LYMPH % 38.2 % (24.0-44.0); MEAN CORPUSCULAR HEMOGLOBIN 30.9 pg (27.0-33.0); MONO # 0.8 10^3/uL (0.0-0.8); MONO % 8.8 % (2.0-8.0); NEUTROPHILS # 4.8 10^3/uL (1.5-8.5); NEUTROPHILS % 51.5 % (36.0-66.0); PLATELET COUNT, AUTOMATED 410 10^3/uL (150-450); RED BLOOD COUNT 4.46 10^6/uL (4.30-6.10); WHITE BLOOD COUNT 9.3 10^3/uL (4.0-10.0)
[2024-03-14 15:30] LABS: ALKALINE PHOSPHATASE 58 U/L (46-116); ALT/SGPT 29 U/L (7.0-40); AST/SGOT 22 U/L (<34); BILIRUBIN,TOTAL 0.5 MG/DL (0.3-1.2); BLOOD UREA NITROGEN 15 MG/DL (9-23); CALCIUM LEVEL 8.9 MG/DL (8.3-10.6); CARBON DIOXIDE LEVEL 29 MMOL/L (20-31); CHLORIDE LEVEL 106 MMOL/L (98-107); CREATININE FOR GFR 0.89 MG/DL (0.70-1.30); GLOMERULAR FILTRATION RATE > 60.0 (>49); GLUCOSE, FASTING 73 MG/DL (74-106); SODIUM LEVEL 140 MMOL/L (136-145); TOTAL PROTEIN 6.6 G/DL (5.7-8.2)
[2024-03-14 15:31] LABS: HEMOGLOBIN A1c 5.2 % (4.0-6.0)
[2024-03-14 15:46] LABS: CA19-9 TUMOR MARKER,CARBOHYDRA < 1.2 U/ML (<35.0)
== END ==
LOC: M PLALAB 11:57
PROVIDERS: ATTEND Physician Assistant Medical
DX: R31.9 Hematuria, unspecified (principal)

== ENCOUNTER → 2024-07-04 | Outpatient (CLI) | payer BC ==
[~2024-07-04] MED LIST changes: +ISOVUE-370 76% 100ML VIAL As Ordered ONE
== END ==
LOC: M RAD 16:00
PROVIDERS: ATTEND Physician Assistant Surgical
DX: K86.2 Cyst of pancreas (principal)
CPT/HCPCS: 74170; Q9967

== ENCOUNTER → 2024-09-09 | Outpatient (CLI) | payer BC ==
[~2024-09-09] MED LIST changes: -ISOVUE-370 76% 100ML VIAL As Ordered ONE
[2024-09-09 10:53] LABS: APPEARANCE, URINE CLEAR (CLEAR); BACTERIA, URINE AUTO NEGATIVE (NEGATIVE); BILIRUBIN, URINE AUTO NEGATIVE (NEGATIVE); BLOOD, URINE BLOOD 1+ (NEGATIVE); COLOR, URINE YELLOW (YELLOW); GLUCOSE, URINE (UA) AUTO NEGATIVE (NEGATIVE); KETONE, URINE AUTO NEGATIVE (NEGATIVE); LEUKOCYTE ESTERASE, URINE AUTO NEGATIVE (NEGATIVE); NITRITE, URINE AUTO NEGATIVE (NEGATIVE); PROTEIN, URINE AUTO NEGATIVE (NEGATIVE); RBC, URINE AUTO 1 /HPF (0-3); SQUAMOUS EPITHELIAL CELL UR AU 0 /HPF (0-6); UROBILINOGEN, URINE AUTO 0.2 mg/dL (0.0-2.0); WBC, URINE AUTO 0 /HPF (0-3)
[2024-09-09 11:04] LABS: BASO # 0.1 10^3/uL (0.0-0.2); BASO % 0.7 % (0.0-1.0); EOS # 0.1 10^3/uL (0.0-0.5); EOS % 1.3 % (0.0-3.0); HEMATOCRIT 46.1 % (42.0-52.0); HEMOGLOBIN 15.6 g/dl (13.5-17.5); LYMPH # 2.7 10^3/uL (1.5-5.0); LYMPH % 34.6 % (24.0-44.0); MEAN CORPUSCULAR HEMOGLOBIN 30.8 pg (27.0-33.0); MEAN CORPUSCULAR HGB CONC 33.8 g/dl (32.0-36.5); MEAN CORPUSCULAR VOLUME 90.9 fl (80.0-96.0); MONO # 0.6 10^3/uL (0.0-0.8); MONO % 7.9 % (2.0-8.0); NEUTROPHILS # 4.3 10^3/uL (1.5-8.5); NEUTROPHILS % 55.2 % (36.0-66.0); PLATELET COUNT, AUTOMATED 419 10^3/uL (150-450); RED BLOOD COUNT 5.07 10^6/uL (4.30-6.10); WHITE BLOOD COUNT 7.7 10^3/uL (4.0-10.0)
[2024-09-09 11:19] LABS: HEMOGLOBIN A1c 5.3 % (4.0-6.0)
[2024-09-09 12:13] LABS: ALBUMIN 4.1 G/DL (3.2-5.2); ALKALINE PHOSPHATASE 59 U/L (40-129); ALT/SGPT 34 U/L (7.0-40); AST/SGOT 23 U/L (<34); BILIRUBIN,TOTAL 0.5 MG/DL (0.3-1.2); BLOOD UREA NITROGEN 12 MG/DL (9-23); CALCIUM LEVEL 9.4 MG/DL (8.3-10.6); CARBON DIOXIDE LEVEL 26 MMOL/L (20-31); CHLORIDE LEVEL 104 MMOL/L (98-107); CHOLESTEROL LEVEL 164 MG/DL (<200); CHOLESTEROL RISK RATIO 2.96 (<5); CREATININE FOR GFR 0.78 MG/DL (0.70-1.30); FREE T4 1.27 NG/DL (0.89-1.76); GLOMERULAR FILTRATION RATE > 60.0 (>49); GLUCOSE, FASTING 81 MG/DL (74-106); HDL CHOLESTEROL 55.3 MG/DL (>40); LDL CHOLESTEROL 90.7 MG/DL (<100); NON-HDL-C 108.7 MG/DL; POTASSIUM SERUM 4.4 MMOL/L (3.5-5.1); PSA SCREENING 0.57 NG/ML (< 4.00); SODIUM LEVEL 139 MMOL/L (136-145); THYROID STIMULATING HORMONE 1.638 uIU/ML (0.55-4.78); TOTAL PROTEIN 7.1 G/DL (5.7-8.2); TRIGLYCERIDES LEVEL 90 MG/DL (<150)
[2024-09-09 12:16] LABS: CA19-9 TUMOR MARKER,CARBOHYDRA 9.4 U/ML (<35.0)
== END ==
LOC: M PLALAB 08:04
PROVIDERS: ATTEND Physician Assistant Medical
DX: R73.01 Impaired fasting glucose (principal); E78.5 Hyperlipidemia, unspecified; Z12.5 Encounter for screening for malignant neoplasm of prostate; R31.9 Hematuria, unspecified

== ENCOUNTER 2024-11-10 09:42 | Day surgery (SDC) | payer BC ==
[~2024-11-10] VITALS: Ht 175.3 cm; Wt 95.8 kg
[~2024-11-10 09:42] MED LIST changes: +AMLO1TAB24 PO
[2024-11-10] MEDS ORDERED: LIDOCAINE 2% 100MG/5ML SDV (FOR ANES.) As Ordered ONE (10:17)
[2024-11-10] MEDS ORDERED: propofoL 200 MG/20 ML VIAL As Ordered ONE (10:17)
[2024-11-10 12:05] VITALS: TEMP 96.7
[2024-11-10 12:20] VITALS: BP 135/65; O2SAT 98
== END 2024-11-10 12:32 | disposition home or self-care (01) ==
LOC: M OPP 09:42
PROVIDERS: ATTEND Surgery
DX: D12.8 Benign neoplasm of rectum (principal); D12.6 Benign neoplasm of colon, unspecified; Z86.0100 Personal history of colon polyps, unspecified; Z79.899 Other long term (current) drug therapy; I10 Essential (primary) hypertension

== ENCOUNTER → 2024-12-05 | Outpatient (REF) | payer BC | LOC: M LAB REF 14:42 | PROVIDERS: ATTEND Surgery | DX: L82.1 Other seborrheic keratosis (principal) ==